=== PATIENT | female | born 1980 | race Caucasian/White ===

== ENCOUNTER 2018-10-03 17:04 | Inpatient (IN) | payer MEDICAID ==
[~2018-10-03] VITALS: Ht 167.6 cm; Wt 68.0 kg
[2018-10-03] MEDS ORDERED: DEXTROSE 50% WATER 50ML SYRINGE IV ONE ×2 (17:14→17:45)
[2018-10-03] MEDS ORDERED: CEFTRIAXONE 1 G PREMIX 50 ML IV ONE (17:45)
[2018-10-03] MEDS ORDERED: SODIUM CHLORIDE 0.9% 1000ML BAG (SEPSIS BOLUS) IV ONE (17:45)
[2018-10-03 17:52] LABS: BASOPHILS % 0.8 % (0.0-2.0); EOSINOPHILS % 1.9 % (0.0-5.0); HEMATOCRIT. 33.6 % (36.0-48.0); HEMOGLOBIN. 10.7 g/dL (12.0-16.0); MEAN CORPUSCULAR HEMOGLOBIN 25.9 pg (28.0-32.0); MEAN CORPUSCULAR VOLUME 81.6 fL (81.0-99.0); MEAN PLATELET VOLUME 8.4 fl (7.4-10.4); MONOCYTES % 4.7 % (2.0-8.0); NEUTROPHILS % 75.6 % (40.0-76.0); PLATELET 588 x1000/uL (130-400); RED BLOOD CELL COUNT 4.12 mill/uL (4.2-5.4); RED CELL DISTRIBUTION WIDTH 16.6 % (11.6-14.6)
[2018-10-03 17:56] LABS: CHLORIDE 107 mEq/L (98-107)
[2018-10-03 17:57] LABS: PROTHROMBIN TIME 10.1 sec (9.6-11.0)
[2018-10-03] MEDS ORDERED: DEXT 10% WATER 1,000 ML IV ONE (18:42)
[2018-10-03] MEDS ORDERED: DEXTROSE 50% WATER 50ML SYRINGE IV PRN (20:00)
[2018-10-03] MEDS ORDERED: DIPHENHYDRAMINE 50MG/ML VIAL IV PRN (20:00)
[2018-10-03] MEDS ORDERED: CLONIDINE 0.1MG TABLET PO PRN (20:00)
[2018-10-03] MEDS ORDERED: ONDANSETRON HCL 4MG/2ML INJ IV PRN (20:00)
[2018-10-03] MEDS ORDERED: MAGNESIUM/ALUMINUM HYDROXIDE/SIMETHICONE 30ML UDC PO PRN (20:00)
[2018-10-03 23:18] LABS: CLARITY URINE CLEAR (CLEAR); COLOR URINE YELLOW (YELLOW); KETONES URINE NEGATIVE (NEGATIVE); LEUKOCYTE ESTERASE URINE NEGATIVE (NEGATIVE); NITRITE URINE NEGATIVE (NEGATIVE); OCCULT BLOOD URINE TRACE (NEGATIVE); PH URINE 5.5 (4.5-8.0); PROTEIN URINE 2+ (NEGATIVE); SPECIFIC GRAVITY URINE 1.012 (1.005-1.030); UROBILINOGEN URINE 0.2 E.U./dL (0.2-1.0)
[2018-10-03 23:50] VITALS: BP 139/86
[2018-10-04] MEDS ORDERED: DEXT 5%/0.45% NACL 500ML 500 ML IV ONE (00:30)
[2018-10-04 01:15] VITALS: BP 139/86
[2018-10-04] MEDS ORDERED: CEFTRIAXONE 1 G PREMIX 50 ML IV SCH (02:00)
[2018-10-04] MEDS ORDERED: INSU100I24 SQ (03:48)
[2018-10-04 04:00] VITALS: BP 107/65
[2018-10-04] MEDS: SODIUM CHLORIDE 0.9% 1,000 ML IV SCH ×2 (04:02→20:00)
[2018-10-04] MEDS: INSULIN LISPRO 100 UNITS/ML SUBCUT SCH ×4 (06:54→20:32)
[2018-10-04] MEDS: BLOOD SUGAR DIAGNOSTIC STRIP TEST SCH ×4 (06:55→20:32)
[2018-10-04 08:00] VITALS: BP 143/89
[2018-10-04] MEDS: ENOXAPARIN 40MG/0.4ML SYR SUBCUT SCH ×2 (08:43→08:44)
[2018-10-04] MEDS: ACETAMINOPHEN 325MG TABLET PO PRN ×2 (11:06→16:56)
[2018-10-04 12:00] VITALS: BP 111/69
[2018-10-04 15:18] LABS: METHADONE URINE SCREEN NEGATIVE (NEGATIVE); OPIATES URINE SCREEN NEGATIVE (NEGATIVE)
[2018-10-04 15:19] LABS: *BARBITURATES SCREEN URINE NEGATIVE (NEGATIVE); *BENZODIAZEPINES SCREEN URINE NEGATIVE (NEGATIVE); *COCAINE SCREEN URINE NEGATIVE (NEGATIVE); CANNABINOID URINE SCREEN NEGATIVE (NEGATIVE); PHENCYCLIDINE URINE SCREEN NEGATIVE (NEGATIVE)
[2018-10-04 15:35] LABS: *AMPHETAMINES SCREEN URINE PRESUMTIVE POSITIVE (NEGATIVE)
[2018-10-04 16:00] VITALS: BP 120/77
[2018-10-04 20:00] VITALS: BP 115/66
[2018-10-04] MEDS ORDERED: KETOROLAC 15MG/ML VIAL IV PRN (20:45)
[2018-10-04] MEDS ORDERED: KETOROLAC 30MG/ML VIAL IV PRN (20:45)
[2018-10-04] MEDS ORDERED: IBUPROFEN 600MG TABLET PO PRN (22:00)
[2018-10-04] MEDS: INSULIN GLARGINE UD 100 UNITS/ML SYR SUBCUT SCH (23:50)
[2018-10-05] VITALS: BP 106/68
[2018-10-05 04:00] VITALS: BP 141/67
[2018-10-05] MEDS: SODIUM CHLORIDE 0.9% 1,000 ML IV SCH ×2 (06:00→16:00)
[2018-10-05] MEDS: INSULIN LISPRO 100 UNITS/ML SUBCUT SCH ×4 (07:40→21:46)
[2018-10-05] MEDS: BLOOD SUGAR DIAGNOSTIC STRIP TEST SCH ×5 (07:52→21:32)
[2018-10-05 08:00] VITALS: BP 143/77
[2018-10-05] MEDS: ENOXAPARIN 40MG/0.4ML SYR SUBCUT SCH (08:12)
[2018-10-05 12:00] VITALS: BP 154/59
[2018-10-05] MEDS: ACETAMINOPHEN 325MG TABLET PO PRN (12:51)
[2018-10-05] MEDS ORDERED: INSULIN GLARGINE UD 100 UNITS/ML SYR SUBCUT NR (15:00)
[2018-10-05 16:00] VITALS: BP 115/61
[2018-10-05] MEDS ORDERED: DEXTROSE 50% WATER 50ML SYRINGE IV PRN (17:15)
[2018-10-05] MEDS ORDERED: MAGNESIUM HYDROXIDE 400MG/5ML 30ML UDC PO PRN (18:30)
[2018-10-05] MEDS: DOCUSATE SODIUM 250MG CAPSULE PO SCH (18:36)
[2018-10-05 20:00] VITALS: BP 125/71
[2018-10-05] MEDS: INSULIN GLARGINE UD 100 UNITS/ML SYR SUBCUT SCH (21:47)
[2018-10-05] MEDS: TRAMADOL 50MG TABLET PO PRN (21:48)
[2018-10-06] VITALS: BP 111/64
[2018-10-06] MEDS: SODIUM CHLORIDE 0.9% 1,000 ML IV SCH ×2 (02:00→11:48)
[2018-10-06] MEDS: TRAMADOL 50MG TABLET PO PRN (03:53)
[2018-10-06 06:11] VITALS: BP 101/55
[2018-10-06] MEDS: BLOOD SUGAR DIAGNOSTIC STRIP TEST SCH ×3 (06:44→16:52)
[2018-10-06] MEDS: INSULIN LISPRO 100 UNITS/ML SUBCUT SCH ×3 (06:51→17:31)
[2018-10-06] MEDS ORDERED: INSULIN GLARGINE UD 100 UNITS/ML SYR SUBCUT SCH (07:00)
[2018-10-06] MEDS: DOCUSATE SODIUM 250MG CAPSULE PO SCH (08:40)
[2018-10-06] MEDS: ENOXAPARIN 40MG/0.4ML SYR SUBCUT SCH ×2 (08:40→08:59)
[2018-10-06 12:00] VITALS: BP 148/64
[2018-10-06 14:57] VITALS: BP 148/64
[2018-10-06 16:00] VITALS: BP 153/56
== END 2018-10-06 17:50 | disposition home or self-care (01) | DRG 420 ==
LOC: ER 17:04 → CANBEDREQ 18:43 → EDBEDREQ 18:43 → EDBEDREQSVC 18:43 → 8WST 18:43 → ENRESERV 22:35
PROVIDERS: ADMIT Internal Medicine; ATTEND Internal Medicine
DX: E11.649 Type 2 diabetes mellitus with hypoglycemia without coma (principal); G93.41 Metabolic encephalopathy; B18.2 Chronic viral hepatitis C; E11.65 Type 2 diabetes mellitus with hyperglycemia; D64.9 Anemia, unspecified; H54.40 Blindness, one eye, unspecified eye; Z72.0 Tobacco use; Z83.3 Family history of diabetes mellitus; Z87.11 Personal history of peptic ulcer disease; Z79.84 Long term (current) use of oral hypoglycemic drugs
CPT/HCPCS: 36415; 71045; 80305; 80307; 80329; 82962; 83605; 84145; 84484; 93005; 96361; 96365; 99291; J0696; J1650; J1815; J1885; J7030; J7050